=== PATIENT | male | born 1955 | race Caucasian/White ===

== ENCOUNTER 2016-06-07 | Outpatient (CLI) | END 2016-06-07 11:25 | disposition EMS.NT ==

== ENCOUNTER 2018-11-15 16:47 | Emergency (ER) | payer OTHER ==
--- NOTE | 2018-11-15 19:59 | ED Physician Documentation ---
PD HPI SKIN - Stated complaint Stated Complaint: BILAT LEG BURNING - Chief complaint Chief Complaint: Ext Problem - History obtained from History obtained from: Patient - History of Present Illness Timing - onset: How many days ago (5-6 days of leg swelling, with worsening and pain the past 3 days in particular. Onset started after getting back from driving trip vacation.) Timing - duration: Days Timing - details: Gradual onset, Still present (has gotten considerably painful the past day) Location: LLE Quality / character: Painful, Swelling. No: Discolored, Vesicular Associated symptoms: No: Fever, Myalgias Similar symptoms before: Has not had sx before Recently seen: Not recently seen Review of Systems Constitutional: denies: Fever, Chills, Myalgias Throat: reports: Other (he says he has had intermittent edema of uvula/throat over the past few weeks.) Cardiac: denies: Chest pain / pressure, Palpitations Respiratory: denies: Dyspnea, Cough Musculoskeletal: reports: Extremity swelling PD PAST MEDICAL HISTORY - Past Medical History Past Medical History: Yes Endocrine/Autoimmune: Type 2 diabetes - Past Surgical History Past Surgical History: No - Present Medications Home Medications: Ambulatory Orders Medication Instructions Recorded Confirmed Baclofen 5 mg PO 11/15/18 Gabapentin 300 mg PO 11/15/18 Hydrochlorothiazide 12.5 mg PO 11/15/18 Hydrocodone/Acetaminophen 11/15/18 [Hydrocodone-Acetamin 5-325 mg] Insulin Aspart [NovoLOG] 5 unit SUBQ TIDWM 11/15/18 11/15/18 LORazepam [Lorazepam] 1 mg PO 11/15/18 QUEtiapine [SEROquel] 25 mg PO QPM 11/15/18 11/15/18 Sertraline [Zoloft] 25 mg PO DAILY 11/15/18 11/15/18 Zolpidem [Ambien] 5 mg PO HS 11/15/18 11/15/18 dexAMETHasone [Decadron] 4 mg PO DAILY #5 tablet 11/15/18 Hydrocodone/Acetaminophen [[place] 1 each PO Q6H PRN #15 tablet 11/16/18 5-325 Tablet] - Allergies Allergies/Adverse Reactions: Allergies Allergy/AdvReac Type Severity Reaction Status Date / Time No Known Drug Allergies Allergy Verified 11/15/18 16:57 - Social History Does the pt smoke?: No Smoking Status: Never smoker Does the pt drink ETOH?: Yes Does the pt have substance abuse?: No - Immunizations Immunizations are current?: Yes PD ED PE NORMAL - Vitals Vital signs reviewed: Yes - General General: Alert and oriented X 3, Well developed/nourished, Other (seems very uncomfortable) - HEENT HEENT: No: Pharynx benign (minimal edema of the uvula.) - Cardiac Cardiac: RRR, No murmur - Respiratory Respiratory: Clear bilaterally - Abdomen Abdomen: Soft, Non tender - Male Male : Other (scrotal edema. No inguinal mass nor hernia noted. ) - Derm Derm: Normal color, Warm and dry - Extremities Extremities: Other (bilateral leg edema, more to the right. Right leg tender in calf and foot. Minimal pinkness/redness. No sores. Somewhat skin sensitive. ) Results - Vitals Vitals: Oxygen O2 Source Room air - Labs Labs: Laboratory Tests 11/15/18 11/15/18 11/15/18 20:40 20:40 20:40 WBC 9.9 RBC 4.91 Hgb 14.6 Hct 42.8 MCV 87.2 MCH 29.8 MCHC 34.2 RDW 14.8 Plt Count 201 MPV 8.0 Neut # (Auto) 7.1 H Lymph # (Auto) 1.8 Charlton # (Auto) 0.9 Eos # (Auto) 0.1 Baso # (Auto) 0.0 Absolute Nucleated RBC 0.01 Nucleated RBC % 0.1 ESR 12 Sodium 135 Potassium 4.0 Chloride 102 Carbon Dioxide 23 Anion Gap 10.0 BUN 15 Creatinine 0.9 Estimated GFR (MDRD) 85 L Glucose 162 H Lactic Acid Calcium 9.4 Magnesium 2.0 Total Bilirubin 0.9 AST 26 ALT 41 Alkaline Phosphatase 103 Total Creatine Kinase 82 Total Protein 7.6 Albumin 4.3 Globulin 3.3 Albumin/Globulin Ratio 1.3 Lipase 21 L 11/15/18 20:40 WBC RBC Hgb Hct MCV MCH MCHC RDW Plt Count MPV Neut # (Auto) Lymph # (Auto) Charlton # (Auto) Eos # (Auto) Baso # (Auto) Absolute Nucleated RBC Nucleated RBC % ESR Sodium Potassium Chloride Carbon Dioxide Anion Gap BUN Creatinine Estimated GFR (MDRD) Glucose Lactic Acid 0.9 Calcium Magnesium Total Bilirubin AST ALT Alkaline Phosphatase Total Creatine Kinase Total Protein Albumin Globulin Albumin/Globulin Ratio Lipase - Rads (name of study) duplex leg Radiology: Prelim report reviewed (no DVT; seen fluid collection near femoral inguinal area. ), See rad report PD MEDICAL DECISION MAKING - ED course Complexity details: considered differential (no noted cause of the edema and pain. Could be hurting from the swelling. Has had some uvular edema intermittently and also leg edema. Is on Lisinopril, so consider angioedema/edema from that. ), d/w patient Departure - Departure Disposition: 01 Home, Self Care Clinical Impression: Leg edema, Uvular edema, Leg pain, bilateral MICHI inhibitor-aggravated angioedema Qualifiers: Encounter type: initial encounter Qualified Code(s): T78.3XXA - Angioneurotic edema, initial encounter Condition: Stable Record reviewed to determine appropriate education?: Yes Instructions: ED Angioedema, ED Edema Legs Bilateral Follow-Up: Rizwan Rivero MD [Primary Care Provider] - Prescriptions: dexAMETHasone [Decadron] 4 mg PO DAILY #5 tablet Hydrocodone/Acetaminophen [[place] 5-325 Tablet] 1 each PO Q6H PRN #15 tablet PRN Reason: Pain Comments: Your blood tests and ultrasound were normal. No signs of blood clots or muscle breakdown or infection. In light of your episodic swelling of the uvula and now the swelling in the legs and scrotum, I think this may be caused by a reaction/side effect of your blood pressure medicine. Lisinopril will cause angioedema and leg edema and a small percentage of people and it can be even if you have been on it for a while. I would suggest you stop your lisinopril. Add Decadron steroid anti- inflammatory daily for 5 days. Follow-up with your primary care for change to a different blood pressure medicine. Most commonly would be one called losartan as a easy substitute for the lisinopril and is from a different category of bloo d pressure medicines. Elevate and rest her legs often to help reduce the swelling. Follow-up with your primary care in the next few days., Call for an appointment. Use Tylenol or hydrocodone if needed for pains. Discharge Date/Time: 11/16/18 00:22
[2018-11-15] MEDS ORDERED: HYDROmorphone 2 MG/ML VIAL IVP STA (20:26)
[2018-11-15] MEDS ORDERED: KETOROLAC 30 MG/ML VIAL IVP STA (20:26)
[2018-11-15 20:46] LABS: BASOPHILS % (AUTO) 0.5 %; EOSINOPHILS # (AUTO) 0.1 10^3/uL (0.0-0.7); EOSINOPHILS % (AUTO) 0.7 %; HGB - HEMOGLOBIN 14.6 g/dL (14.0-18.0); LYMPHOCYTES # (AUTO) 1.8 10^3/uL (1.5-3.5); LYMPHOCYTES % (AUTO) 18.5 %; MEAN CORPUSCULAR HEMOGLOBIN 29.8 pg (27.0-31.0); MEAN CORPUSCULAR HGB CONC 34.2 g/dL (32.0-36.0); MEAN CORPUSCULAR VOLUME 87.2 fL (80.0-94.0); MONOCYTES # (AUTO) 0.9 10^3/uL (0.0-1.0); MONOCYTES % (AUTO) 9.1 %; NEUTROPHILS # (AUTO) 7.1 10^3/uL (1.5-6.6); NEUTROPHILS % (AUTO) 71.2 %; PLT - PLATELET COUNT 201 10^3/uL (130-450); RED BLOOD COUNT 4.91 10^6/uL (4.70-6.10); RED CELL DISTRIBUTION WIDTH 14.8 % (12.0-15.0); WHITE BLOOD COUNT 9.9 x10^3/uL (4.8-10.8)
[2018-11-15 20:57] LABS: ALBUMIN 4.3 g/dL (3.2-5.5); ALBUMIN/GLOBULIN RATIO 1.3 (1.0-2.2); BILIRUBIN,TOTAL 0.9 mg/dL (0.2-1.0); CALCIUM 9.4 mg/dL (8.5-10.3); CREATININE 0.9 mg/dL (0.6-1.2); TOTAL PROTEIN 7.6 g/dL (6.7-8.2)
--- NOTE | 2018-11-15 23:12 | Ultrasound Report ---
Reason: legs pain and edema for a week, after car trip Procedure Date: 11/15/2018 Accession Number: [id number] / [id number] Procedure: US - Duplex Ext Veins Bilateral CPT Code: FULL RESULT: EXAM: BILATERAL LOWER EXTREMITY VENOUS ULTRASOUND EXAM DATE: 11/15/2018 10:20 PM. CLINICAL HISTORY: Legs pain and edema for a week, after car trip. COMPARISON: None. TECHNIQUE: Real-time sonographic vascular imaging was performed by the business machine operator through the lower extremities utilizing both color-flow and Doppler spectral analysis. Multiple printing supplies sales representative static images were saved for review. FINDINGS: Right: Common Femoral Vein (CFV): Normal. CFV-GSV Junction: Normal. Profunda Femoral Vein (PFV): Normal. Femoral Vein (FV) Prox: Normal. Femoral Vein (FV) Mid: Normal. Femoral Vein (FV) Dist: Normal. Popliteal Vein: Normal. Posterior Tibial Veins: Normal. Peroneal Veins: Normal. Left: Common Femoral Vein (CFV): Normal. CFV-GSV Junction: Normal. Profunda Femoral Vein (PFV): Normal. Femoral Vein (FV) Prox: Normal. Femoral Vein (FV) Mid: Normal. Femoral Vein (FV) Dist: Normal. Popliteal Vein: Normal. Posterior Tibial Veins: Normal. Peroneal Veins: Normal. Other: There is a 6.1 x 3.2 x 1.7 cm fluid collection posterior to the left femoral vasculature. IMPRESSION: No evidence of DVT. 6.1 cm simple fluid collection posterior to the left femoral vasculature, which may represent a cyst, lymphocele, or hernia. RADIA
[2018-11-15] MEDS ORDERED: HYDROmorphone 1 MG/ML CARPUJECT IVP STA (23:29)
[2018-11-15] MEDS ORDERED: AMITRIPTYLINE 25 MG TABLET PO STA (23:30)
[2018-11-15] MEDS ORDERED: DEXAMETHASONE 10 MG/ML VIAL IVP STA (23:30)
[2018-11-15] MEDS ORDERED: ACETAMINOPHEN 325 MG TABLET PO STA (23:31)
[2018-11-16] MEDS ORDERED: ONDANSETRON ODT 4 MG TABLET TL STA (00:15)
[2018-11-16 00:22] VITALS: BP 170/68
== END 2018-11-16 00:22 | disposition home or self-care (01) ==
LOC: ED 16:47
DX: T78.3XXA Angioneurotic edema, initial encounter (principal); T46.4X5A Adverse effect of angiotensin-converting-enzyme inhibitors, initial encounter; N50.89 Other specified disorders of the male genital organs; M79.604 Pain in right leg; M79.605 Pain in left leg; E11.9 Type 2 diabetes mellitus without complications; Z79.4 Long term (current) use of insulin
CPT/HCPCS: 36415; 80053; 82550; 83605; 83690; 83735; 85025; 85651; 93970; 96374; 96376; 99283; 99284; A9270; J1170; Q0162

== ENCOUNTER 2018-12-10 14:22 | Emergency (ER) | payer OTHER ==
[2018-12-10] MEDS ORDERED: oxyCODONE 5 MG TABLET PO STA ×2 (14:49→14:51)
[2018-12-10 15:07] LABS: BASOPHILS % (AUTO) 0.5 %; EOSINOPHILS # (AUTO) 0.1 10^3/uL (0.0-0.7); EOSINOPHILS % (AUTO) 0.8 %; HGB - HEMOGLOBIN 13.8 g/dL (14.0-18.0); LYMPHOCYTES # (AUTO) 1.4 10^3/uL (1.5-3.5); MEAN CORPUSCULAR HEMOGLOBIN 29.1 pg (27.0-31.0); MEAN CORPUSCULAR HGB CONC 32.4 g/dL (32.0-36.0); MEAN CORPUSCULAR VOLUME 89.9 fL (80.0-94.0); MEAN PLATELET VOLUME 10.1 fL (7.4-11.4); MONOCYTES # (AUTO) 0.8 10^3/uL (0.0-1.0); MONOCYTES % (AUTO) 9.3 %; NEUTROPHILS # (AUTO) 6.4 10^3/uL (1.5-6.6); NEUTROPHILS % (AUTO) 72.9 %; PLT - PLATELET COUNT 180 10^3/uL (130-450); RED BLOOD COUNT 4.74 10^6/uL (4.70-6.10); WHITE BLOOD COUNT 8.8 x10^3/uL (4.8-10.8)
--- NOTE | 2018-12-10 15:10 | ED Physician Documentation ---
PD HPI FOCAL NEURO - Stated complaint Stated Complaint: STROKE LIKE SX - Chief complaint Chief Complaint: Neuro - History obtained from History obtained from: Patient, Family - History of Present Illness Timing - onset: How many days ago (2) Timing - duration: Days (2) Timing - details: Gradual onset Severity of deficit: Moderate Weakness: Face, Leg (B leg weakness is chronic from an old injury), Left. 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.) Recently seen: Not recently seen Review of Systems Constitutional: denies: Fever, Chills Cardiac: denies: Chest pain / pressure Respiratory: denies: Dyspnea GI: denies: Vomiting, Diarrhea Skin: denies: Rash Musculoskeletal: denies: Neck pain, Back pain Neurologic: denies: Focal weakness, Numbness, Headache PD PAST MEDICAL HISTORY - Past Medical History Endocrine/Autoimmune: Type 2 diabetes - Past Surgical History Past Surgical History: No - Present Medications Home Medications: Ambulatory Orders Medication Instructions Recorded Confirmed Baclofen 5 mg PO 11/15/18 Gabapentin 300 mg PO 11/15/18 Hydrochlorothiazide 12.5 mg PO 11/15/18 Hydrocodone/Acetaminophen 11/15/18 [Hydrocodone-Acetamin 5-325 mg] Insulin Aspart [NovoLOG] 5 unit SUBQ TIDWM 11/15/18 11/15/18 LORazepam [Lorazepam] 1 mg PO 11/15/18 QUEtiapine [SEROquel] 25 mg PO QPM 11/15/18 11/15/18 Sertraline [Zoloft] 25 mg PO DAILY 11/15/18 11/15/18 Zolpidem [Ambien] 5 mg PO HS 11/15/18 11/15/18 dexAMETHasone [Decadron] 4 mg PO DAILY #5 tablet 11/15/18 Hydrocodone/Acetaminophen [[place] 1 each PO Q6H PRN #15 tablet 11/16/18 5-325 Tablet] Oxycodone HCl/Acetaminophen 1 - 2 each PO Q6H PRN #14 tablet 12/10/18 [Percocet 5-325 mg Tablet] Valacyclovir HCl [Valacyclovir] 1,000 mg PO TID #21 tablet 12/10/18 predniSONE [Deltasone] 60 mg PO DAILY 7 Days #21 tablet 12/10/18 - Allergies Allergies/Adverse Reactions: Allergies Allergy/AdvReac Type Severity Reaction Status Date / Time No Known Drug Allergies Allergy Verified 12/10/18 14:32 - Social History Does the pt smoke?: No Smoking Status: Never smoker Does the pt drink ETOH?: Yes Does the pt have substance abuse?: No - Immunizations Immunizations are current?: Yes PD ED PE NORMAL - Vitals Vital signs reviewed: Yes - General General: Alert and oriented X 3, No acute distress, Well developed/nourished - HEENT HEENT: PERRL, Moist mucous membranes, Pharynx benign, Other (Left sided facial paralysis, positive Gramajo's phenomenon. Forehead is involved.) - Neck Neck: Supple, no meningeal sign - Cardiac Cardiac: RRR, Strong equal pulses - Respiratory Respiratory: No respiratory distress, Clear bilaterally - Abdomen Abdomen: Soft, Non tender, Non distended - Back Back: No spinal TTP - Derm Derm: Warm and dry - Extremities Extremities: No edema, No calf tenderness / cord, Other (Bilateral legs are not weak but there is pain in his back when he tries to move them.) - Neuro Neuro: Alert and oriented X 3, computer discovery teacher 2-12 intact, No sensory deficit - Psych Psych: Normal mood, Normal affect NIHSS - Time Time: 15:00 - Level of Consciousness Level of consciousness: (0) Alert, Keenly responsive LOC Questions: (0) Answers both Q's correct LOC Commands: (0) Performs both correctly - Gaze Best Gaze: (0) Normal - Visual Visual: (0) No loss - Facial Palsy Facial Palsy: (3) Complete paralysis (uppper and lower) - Motor Arms (both separate) Motor Arm (right): (0) No drift Motor Arm (left): (0) No drift - Motor Legs (both separate) Motor Leg (right): (0) No drift Motor Leg (left): (0) No drift - Limb Ataxia Limb Ataxia: (0) Absent - Sensory Sensory: (0) Normal - Best Language Best Language: (0) No aphasia - Dysarthria Dysarthria: (0) Normal - Extinction and Inattention (formally neg Extinction and inattention: (0) No abnormality - Total Score/Results Total Score/Result: 3 Results - Vitals Vitals: Vital Signs - 24 hr 12/10/18 12/10/18 12/10/18 14:28 15:07 15:30 Temperature 35.7 C L 36.7 C Heart Rate 84 80 76 Respiratory 16 17 20 Rate Blood Pressure 138/79 H 149/102 H O2 Saturation 99 97 99 12/10/18 16:00 Temperature Heart Rate 78 Respiratory 14 Rate Blood Pressure 157/101 H O2 Saturation 97 Oxygen O2 Source Room air - Labs Labs: Laboratory Tests 12/10/18 12/10/18 14:57 14:57 WBC 8.8 RBC 4.74 Hgb 13.8 L Hct 42.6 MCV 89.9 MCH 29.1 MCHC 32.4 RDW 14.0 Plt Count 180 MPV 10.1 Neut # (Auto) 6.4 Lymph # (Auto) 1.4 L [place] # (Auto) 0.8 Eos # (Auto) 0.1 Baso # (Auto) 0.0 Absolute Nucleated RBC 0.00 Nucleated RBC % 0.0 Sodium 137 Potassium 3.8 Chloride 101 Carbon Dioxide 24 Anion Gap 12.0 BUN 16 Creatinine 0.9 Estimated GFR (MDRD) 85 L Glucose 191 H Calcium 9.4 Total Bilirubin 0.8 AST 18 ALT 32 Alkaline Phosphatase 96 Total Protein 7.1 Albumin 3.9 Globulin 3.2 Albumin/Globulin Ratio 1.2 Lipase 23 - Rads (name of study) head ct Radiology: Prelim report reviewed, EMP read contemporaneously, See rad report (No acute intracranial abnormality) PD MEDICAL DECISION MAKING - ED course Complexity details: reviewed results, re-evaluated patient, considered differential, d/w patient, d/w family ED course: 63-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 Will place on valacyclovir and prednisone. No evidence of stroke. Has chronic low back pain. Feels better after oxycodone. The steroids likely will help his back as well. Ambulating well. He did have an abrasion to the right knee that was cleansed and bandaged. Tetanus is up-to-date. Patient counseled regarding signs and symptoms for which I believe and urgent re-evaluation would be necessary. Patient with good understanding of and agreement to plan and is comfortable going home at this time This document was made in part using voice recognition software. While efforts are made to proofread this document, sound alike and grammatical errors may occur. Departure - Departure Disposition: 01 Home, Self Care Clinical Impression: Gramajo palsy Chronic back pain Qualifiers: Back pain location: low back pain Back pain laterality: unspecified Sciatica presence: unspecified whether sciatica present Qualified Code(s): M54.5 - Low back pain Condition: Good Instructions: ED [place] Palsy Follow-Up: Rizwan Rivero MD [Primary Care Provider] - Within 1 week Prescriptions: Oxycodone HCl/Acetaminophen [Percocet 5-325 mg Tablet] 1 - 2 each PO Q6H PRN #14 tablet PRN Reason: pain predniSONE [Deltasone] 60 mg PO DAILY 7 Days #21 tablet Valacyclovir HCl [Valacyclovir] 1,000 mg PO TID #21 tablet Comments: Return if you worsen. Follow-up with your doctor for further care. Your testing today is normal. He can use artificial tears during the day for your left eye as well as gel tears at night. Do not drink alcohol or drive while on narcotic pain medicine. Note that many narcotic pain relievers also contain tylenol/acetaminophen. Please ensure that your total dose of acetaminophen from all sources does not exceed 3 grams (3000mg) per day. You may constipated on this medication, take a stool softener such as "Colace" twice a day while you are on it. Also recommend a [id number] laxative such as senna or MiraLAX any day that you do not have a bowel movement. If you received narcotic pain medication in the emergency department, do not drive or operate machinery for the next 24 hours.
[2018-12-10 15:17] LABS: ALBUMIN 3.9 g/dL (3.2-5.5); ALBUMIN/GLOBULIN RATIO 1.2 (1.0-2.2); BILIRUBIN,TOTAL 0.8 mg/dL (0.2-1.0); CALCIUM 9.4 mg/dL (8.5-10.3); CREATININE 0.9 mg/dL (0.6-1.2); TOTAL PROTEIN 7.1 g/dL (6.7-8.2)
--- NOTE | 2018-12-10 15:33 | CT Report ---
Reason: L facial droop Procedure Date: 12/10/2018 Accession Number: [id number] / [id number] Procedure: CT - HEAD WO CPT Code: FULL RESULT: EXAM: CT HEAD EXAM DATE: 12/10/2018 03:20 PM. CLINICAL HISTORY: L facial droop. COMPARISON: None. TECHNIQUE: Multiaxial CT images were obtained from the foramen magnum to the vertex. Reformats: Sagittal and coronal. IV contrast: None. In accordance with CT protocol optimization, one or more of the following dose reduction techniques were utilized for this exam: automated exposure control, adjustment of mA and/or KV based on patient size, or use of iterative reconstructive technique. FINDINGS: Parenchyma: No intraparenchymal hemorrhage. No evidence of mass, midline shift, or CT findings of infarction. Michel-white differentiation is distinct. Extraaxial Spaces: Normal for age. No subdural or epidural collections identified. Ventricles: Normal in size and position. Sinuses and Orbits: Imaged paranasal sinuses, orbits, and mastoids show no significant abnormality. Bones: No evidence of fracture or calvarial defect. Other: None. IMPRESSION: No focal loss of michel-white matter differences in to suggest acute infarct. No acute intracranial abnormality. RADIA
[2018-12-10] MEDS ORDERED: BACITRACIN OINT TOP STA (16:10)
[2018-12-10 16:48] VITALS: BP 162/107
== END 2018-12-10 16:48 | disposition home or self-care (01) ==
LOC: ED 14:22
DX: G51.0 Bell's palsy (principal); M54.5 Low back pain; G89.29 Other chronic pain; S80.211A Abrasion, right knee, initial encounter; W19.XXXA Unspecified fall, initial encounter; Y92.008 Other place in unspecified non-institutional (private) residence as the place of occurrence of the external cause; E11.9 Type 2 diabetes mellitus without complications; Z79.4 Long term (current) use of insulin
CPT/HCPCS: 36415; 70450; 80053; 83690; 85025; 99284; A9270